=== PATIENT | male | born 1975 | race Two or more races ===

== ENCOUNTER 2016-04-06 15:24 | Emergency (ER) | payer OTHER ==
[~2016-04-06] VITALS: Ht 195.6 cm; Wt 120.2 kg
[2016-04-06 17:03] VITALS: BP 138/71
== END 2016-04-06 17:32 | disposition home or self-care (01) ==
LOC: EDUNIT# 15:24 → ER 15:32
DX: R51 Headache (principal); V49.49XA Driver injured in collision with other motor vehicles in traffic accident, initial encounter; Y93.89 Activity, other specified; Y99.8 Other external cause status; Y92.410 Unspecified street and highway as the place of occurrence of the external cause
CPT/HCPCS: 70450; 93005